=== PATIENT | female | born 1995 | race Caucasian/White ===

== ENCOUNTER 2018-04-05 06:43 | Emergency (ER) | payer OTHER, MEDICAID ==
[~2018-04-05] VITALS: Ht 127 cm; Wt 31.8 kg
[~2018-04-05 06:43] MED LIST: CETI10TA18 PO; FURO20TA4 PO; IPRA3AMP31 IH; LACT460C PO; LANS15CA10 PO; LEVE100S PO; LORA0.5T PO; MAGN400O6 PO; SIME125T7 PO
[2018-04-05] MEDS ORDERED: clindamycin 300mg/D5W 50mL 50 ML IV STA (06:59)
[2018-04-05] MEDS ORDERED: levoFLOXACIN-Levaquin 500mg/D5 100 ML IV ONE (07:00)
[2018-04-05] MEDS ORDERED: normal saline 1000ML IV soln IV ONE (07:00)
[2018-04-05] MEDS ORDERED: levetiracetam inj 250 MG in normal saline 100ml IV soln 97.5 ML IV STA ×2 (07:01→09:39)
[2018-04-05] MEDS ORDERED: LORazepam 2 mg/ml vial ONE (07:54)
[2018-04-05 08:12] LABS: BASOPHILS % (AUTO) 0.1 % (0-1); EOSINOPHILS % (AUTO) 0.1 % (0-6); HEMATOCRIT 37.2 % (35.0-45.0); LYMPHOCYTES # (AUTO) 0.6 X10'3 (1.1-4.8); LYMPHOCYTES % (AUTO) 5.6 % (21-51); MEAN CORPUSCULAR HEMOGLOBIN 31.1 PG (27.0-31.0); MEAN CORPUSCULAR HGB CONC 32.3 % (33.0-36.5); MEAN CORPUSCULAR VOLUME 96.4 FL (78-98); MEAN PLATELET VOLUME 8.8 FL (7.4-10.4); MONOCYTES # (AUTO) 0.8 X10'3 (0-0.9); MONOCYTES % (AUTO) 7.1 % (2-12); NEUTROPHILS # (AUTO) 9.3 X10'3 (1.8-7.7); NEUTROPHILS % (AUTO) 87.1 % (42-75); PLATELET COUNT 233 X10'3 (140-440); RED BLOOD COUNT 3.86 X10'6 (4.20-5.60); RED CELL DISTRIBUTION WIDTH 12.9 % (11.5-14.5); WHITE BLOOD COUNT 10.6 X10'3 (4.5-11.0)
[2018-04-05 08:16] LABS: ABG BASE EXCESS 11.1 mmol/L (-2.0-3.0); ABG HCO3 46.3 mmol/L (22.0-26.0); ABG PCO2 (T) > 150.0 mmHg (32.0-45.0); ABG PH (T) 7.103 (7.350-7.450); ABG PO2 (T) 119.7 mmHg (83-108); FCOHb 0.4 % (0.5-1.5); FMetHb 0.3 % (0.3-1.12); FO2Hb 97.3 % (94-100); MINUTE VOLUME 4 L/min; RESPIRATORY RATE 18 b/min; RESPIRATORY RATE (OBSERVED) 27 b/min; TIDAL VOLUME 146 mL; TOTAL HEMOGLOBIN 13.2 G/dl (12.0-16.0)
[2018-04-05 08:26] LABS: ALANINE AMINOTRANSFERASE 32 U/L (12-78); ALBUMIN 2.7 G/DL (3.4-5.0); ALBUMIN/GLOBULIN RATIO 0.8 (1.1-1.5); ALKALINE PHOSPHATASE 84 IU/L (46-116); ANION GAP -2 (8-16); ASPARTATE AMINO TRANSFERASE 18 U/L (10-37); BILIRUBIN,TOTAL 0.1 MG/DL (0.1-1.0); BLOOD UREA NITROGEN 4 MG/DL (7-18); BUN/CREATININE RATIO 12.1 (6.6-38.0); CALCIUM 7.6 MG/DL (8.5-10.1); CHLORIDE 98 MMOL/L (99-107); CREATININE 0.33 MG/DL (0.40-0.90); GLUCOSE 158 MG/DL (70-104); MAGNESIUM 1.8 MG/DL (1.5-2.4); POTASSIUM 4.7 MMOL/L (3.5-5.1); SODIUM 136 MMOL/L (135-145); TOTAL PROTEIN 6.3 G/DL (6.4-8.2); eGFR > 90 ML/MIN
[2018-04-05 08:29] LABS: INR 1.1 INR; PARTIAL THROMBOPLASTIN TIME 31 SECONDS (22-32); PROTHROMBIN TIME 10.7 SECONDS (9.0-12.0)
[2018-04-05 08:54] LABS: URINE HCG NEGATIVE (NEG)
[2018-04-05 08:57] LABS: CLARITY,URINE CLOUDY (Clear); COLOR,URINE YELLOW (Yellow); GLUCOSE, URINE NEGATIVE (Neg); KETONES,URINE NEGATIVE (Neg); LEUKOCYTE ESTERASE ,URINE NEGATIVE (Neg); NITRITES, URINE NEGATIVE (Neg); OCCULT BLOOD,URINE MODERATE (Neg); PROTEIN,URINE 30 mg/dl (Neg); UA COLLECTION TYPE STRAIGHT CATH; UROBILINOGEN,URINE 0.2 E.U/dL (0.2-1.0)
[2018-04-05] MEDS ORDERED: LORazepam 2 mg/ml vial IV ONE ×2 (09:00→11:25)
[2018-04-05 09:02] LABS: MUCUS STRANDS MODERATE /LPF (Neg); SQUAMOUS EPITHELIAL CELL,UR MODERATE /LPF (FEW); TRANSITIONAL EPI CELLS,URINE MODERATE /HPF
[2018-04-05 09:03] LABS: BACTERIA,URINE 2+ /HPF (Neg)
[2018-04-05 09:04] LABS: HYALINE CASTS 0-3 /LPF (NEGATIVE); RBC,URINE 50-100 /HPF (0-2); WBC,URINE 0-4 /HPF (0-4)
[2018-04-05] MEDS ORDERED: cannabis GT (09:04)
[2018-04-05] MEDS ORDERED: LORA0.5T GT (09:04)
[2018-04-05 09:21] LABS: ABG HCO3 47.7 mmol/L (22.0-26.0); ABG PCO2 (T) 145.7 mmHg (32.0-45.0); ABG PH (T) 7.133 (7.350-7.450); ABG PO2 (T) 123.7 mmHg (83-108); FCOHb 0.4 % (0.5-1.5); FMetHb 0.3 % (0.3-1.12); FO2Hb 97.3 % (94-100); MINUTE VOLUME 12 L/min; RESPIRATORY RATE 20 b/min; RESPIRATORY RATE (OBSERVED) 20 b/min; TIDAL VOLUME 20 mL
[2018-04-05 09:32] LABS: D-DIMER 0.53 MG/L FEU (0-0.50)
[2018-04-05] MEDS ORDERED: propofol 10mg/ml 20ml vial IV ONE (09:45)
[2018-04-05] MEDS ORDERED: sevoflurane 250ml liquid IH ONE (09:45)
[2018-04-05] MEDS ORDERED: midazolam 2 mg/2 ml injection ONE (09:56)
[2018-04-05] MEDS ORDERED: rocuronium 10mg/ml inj IV ONE (09:59)
[2018-04-05] MEDS ORDERED: sodium chloride 0.45% 1,000 ML IV ONE (11:00)
[2018-04-05] MEDS ORDERED: VECuronium br 10mg inj. IV ONE ×2 (11:23→11:25)
[2018-04-05 12:08] VITALS: BP 146/89
== END 2018-04-05 12:10 | disposition short-term general hospital (02) ==
LOC: ER 06:43
DX: J18.9 Pneumonia, unspecified organism (principal); J96.90 Respiratory failure, unspecified, unspecified whether with hypoxia or hypercapnia; G93.49 Other encephalopathy; G83.89 Other specified paralytic syndromes; J45.909 Unspecified asthma, uncomplicated; Q04.3 Other reduction deformities of brain; G82.50 Quadriplegia, unspecified; G40.909 Epilepsy, unspecified, not intractable, without status epilepticus; Z88.1 Allergy status to other antibiotic agents; Z91.040 Latex allergy status; Z99.81 Dependence on supplemental oxygen; Z79.899 Other long term (current) drug therapy; Z98.890 Other specified postprocedural states
CPT/HCPCS: 31500; 36415; 36600; 71045; 80053; 81001; 81025; 82803; 83605; 83735; 83880; 84145; 85018; 85025; 85379; 85610; 85730; 87040; 87077; 87186; 93005; 94660; 94760; 96365; 96368; 96375; 96376; 99291; 99292; J1953; J1956; J2060; J2250; J2704; 94002; 96366; B4088; J3490; J7030; X5958

== ENCOUNTER 2018-08-28 08:52 | Inpatient (IN) | payer OTHER, MEDICAID ==
[~2018-08-28] VITALS: Ht 106.7 cm; Wt 40.0 kg
[~2018-08-28 08:52] MED LIST changes: -CETI10TA18 PO; +CLONIDINE HCL 0.2 MG PO; -FURO20TA4 PO; -LACT460C PO; -LANS15CA10 PO; +LORA0.5T GT; +cannabis GT
[2018-08-28] MEDS ORDERED: normal saline 1000ml 1,000 ML IV ONE (09:28)
[2018-08-28] MEDS ORDERED: albuterol 2.5 MG/3 ML nebule NEB ONE (09:30)
[2018-08-28] MEDS ORDERED: levetiracetam 100mg/ml oral solution 5ml UD cup PO ONE (09:36)
[2018-08-28 11:18] LABS: BASOPHILS % (AUTO) 0.2 % (0-1); EOSINOPHILS % (AUTO) 0.2 % (0-6); HEMATOCRIT 43.2 % (35.0-45.0); HEMOGLOBIN 13.8 g/dl (12.0-16.0); LYMPHOCYTES # (AUTO) 0.6 X10'3 (1.1-4.8); LYMPHOCYTES % (AUTO) 3.2 % (21-51); MEAN CORPUSCULAR HEMOGLOBIN 28.7 PG (27.0-31.0); MEAN CORPUSCULAR HGB CONC 31.9 g/dL (33.0-36.5); MEAN CORPUSCULAR VOLUME 89.9 FL (78-98); MEAN PLATELET VOLUME 9.3 FL (7.4-10.4); MONOCYTES # (AUTO) 1.5 X10'3 (0-0.9); MONOCYTES % (AUTO) 8.4 % (2-12); PLATELET COUNT 327 X10'3 (140-440); RED CELL DISTRIBUTION WIDTH 13.9 % (11.5-14.5); WHITE BLOOD COUNT 18.2 X10'3 (4.5-11.0)
[2018-08-28 11:24] LABS: PARTIAL THROMBOPLASTIN TIME 27 SECONDS (22-32); PROTHROMBIN TIME 10.6 SECONDS (9.0-12.0)
[2018-08-28 11:37] LABS: ALANINE AMINOTRANSFERASE 29 U/L (12-78); ALBUMIN 3.5 G/DL (3.4-5.0); ALBUMIN/GLOBULIN RATIO 0.8 (1.1-1.5); ALKALINE PHOSPHATASE 102 IU/L (46-116); ANION GAP 8 (8-16); ASPARTATE AMINO TRANSFERASE 24 U/L (10-37); BILIRUBIN,TOTAL 0.2 MG/DL (0.1-1.0); BLOOD UREA NITROGEN 12 MG/DL (7-18); BUN/CREATININE RATIO 24.5 (6.6-38.0); CALCIUM 9.8 MG/DL (8.5-10.1); CHLORIDE 101 MMOL/L (99-107); CREATININE 0.49 MG/DL (0.40-0.90); GLUCOSE 91 MG/DL (70-104); MAGNESIUM 2.4 MG/DL (1.5-2.4); POTASSIUM 4.3 MMOL/L (3.5-5.1); SODIUM 145 MMOL/L (135-145); TOTAL CARBON DIOXIDE 36.1 MMOL/L (24-32); TOTAL PROTEIN 7.7 G/DL (6.4-8.2); eGFR > 90 ML/MIN
[2018-08-28 11:54] LABS: PLATELET ESTIMATE NORMAL; TOTAL CELLS COUNTED 100; TOXIC VACUOLATION FEW
[2018-08-28] MEDS ORDERED: normal saline 1000ML IV soln IVB ONE (12:05)
[2018-08-28 12:24] LABS: CLARITY,URINE CLEAR (Clear); COLOR,URINE YELLOW (Yellow); GLUCOSE, URINE NEGATIVE (Neg); KETONES,URINE NEGATIVE (Neg); LEUKOCYTE ESTERASE ,URINE NEGATIVE (Neg); NITRITES, URINE NEGATIVE (Neg); OCCULT BLOOD,URINE TRACE-INTACT (Neg); PROTEIN,URINE 100 mg/dl (Neg); UROBILINOGEN,URINE 0.2 E.U/dL (0.2-1.0)
[2018-08-28 12:29] LABS: UA COLLECTION TYPE STRAIGHT CATH
--- NOTE | 2018-08-28 12:29 | NUR ---
Dr. Deleon from [facility] called and update on patient's condition was given per fathers request. Dr. Deleon states that if the family is requesting for the patient to be transfered he will accept the admission. He is concered that she maybe coming down with a respiratory viral illness due to the patients mother having a URI.
[2018-08-28 12:31] LABS: BACTERIA,URINE FEW /HPF (Neg); MUCUS STRANDS MANY /LPF (Neg); RBC,URINE 0-2 /HPF (0-2); SQUAMOUS EPITHELIAL CELL,UR FEW /LPF (FEW); WBC,URINE 0-4 /HPF (0-4)
--- NOTE | 2018-08-28 12:32 | NUR ---
Dr. Deleon phone number is [phone]
--- NOTE | 2018-08-28 12:52 | NUR ---
Dr. Joel Calvo doing tele neuro consult.
[2018-08-28] MEDS ORDERED: ondansetron/PF 4mg/2ml inj IV PRN (13:50)
[2018-08-28] MEDS ORDERED: levoFLOXACIN 500mg tablet PEG ONE (13:50)
--- NOTE | 2018-08-28 14:41 | NUR ---
RN not available to take report at this time, will call down to ER to get report.
--- NOTE | 2018-08-28 15:30 | NUR ---
Patient arrived to PCU room 3014A via gurney, accompanied by staff and family. Pt transferred to bed, in no acute distress. Vital signs stable: T:98.2, HR:66, RR: 19, BP 111/87. Will continue to monitor
[2018-08-28] MEDS: normal saline 1000ml 1,000 ML IV SCH ×2 (16:04→18:03)
--- NOTE | 2018-08-28 16:28 | NUR ---
Sent group hospitalist page for new patient. PAGER ID: [phone] MESSAGE: Sharon [phone]. RE: Brian [facility] 3014A. Med rec reported and reviewed. Family at bedside, and would like to address PEG tube feeds. Thank you
[2018-08-28 18:00] VITALS: BP 135/69
--- NOTE | 2018-08-28 18:49 | NUR ---
Patient in room PCU 3014. I have received report from Sharon MARIN and had the opportunity to ask questions and assume patient care.
[2018-08-28] MEDS ORDERED: albuterol 2.5 MG/3 ML nebule NEB PRN (19:10)
--- NOTE | 2018-08-28 19:15 | NUR ---
Call placed to Dr Pollard for order for Nebulizer treatments for patient and verified that he was aware that the pt's father had her medications from home and was giving them to her (prior to shift change he stated they were her 1700 meds). He stated he was aware and that he told her father he could give them so he did not have to wait for pharmacy and medication reconciliation to be completed. Father worried pt would go into seizures, pain, and distress. Nurse also let him know he medications were ready for verifying in [facility]. Nurse paged RT for treatment due to pt was wheezing and using accessory muscles when breathing. Nurse went back into room and found the patient's father using their home nebulizer machine and giving her the Albuterol tx he had with them. Informed patients father that pharmacy had all her meds and had verified them. The pt's O2 sats remained >95% on 3 litters O2 and Nebulizer tx was effective. Nurse informed father that from then on we would only use medications distributed by the hospital. He stated understanding and agreed.
[2018-08-28] MEDS ORDERED: LORazepam 0.5 MG tablet PO PRN (19:45)
[2018-08-28] MEDS ORDERED: ipratropium/albuterol 3ml nebule IH PRN (19:45)
[2018-08-28] MEDS ORDERED: cloNIDine 0.1 mg tablet PO SCH (20:00)
[2018-08-28] MEDS ORDERED: levetiracetam 100mg/ml oral solution 5ml UD cup PO SCH ×2 (20:00)
--- NOTE | 2018-08-28 20:45 | NUR ---
The patients father stated he had decided that he would take his daughter home. He stated he felt she was better and stable and just needed antibiotics. He stated he had discussed this with the MD earlier in the ER and the Dr at that time told him it was up to him to decide what he felt she needed. (the family cares for her 28/12 and has since she was born. They are very educated and dedicated to giving her the best of care) He asked if nurse would call MD and see if he would give an RX for ABT for home because he was wanting to leave regardless. Nurse called Dr Pollard and he gave a TOV to have father sign out AMA and another TOV for Levaquin 500 mg tabs for G Tube x 7 days to be called or faxed to pharmacy of their choice. Nurse faxed RX to [facility] in [place]. Had pt's father sign the AMA papers, gave a copy of fax to the father. Nurse discontinued IV pt tolerated well. Tele removed. Pt was continuing on her home O2 sat, heart monitor for leaving. She had remained stable, with no s/s of distress. staff assisted father, patient, and his other daughter to private vehicle and they left without incident.
[2018-08-28] MEDS ORDERED: LORazepam 0.5 MG tablet PO SCH (21:00)
== END 2018-08-28 21:55 | disposition left against medical advice (07) | DRG 177 ==
LOC: ER 08:52 → ED HOLD 13:46 → PCU 3S 15:23
PROVIDERS: ADMIT Hospitalist; ATTEND Hospitalist
DX: J69.0 Pneumonitis due to inhalation of food and vomit (principal); J96.20 Acute and chronic respiratory failure, unspecified whether with hypoxia or hypercapnia; D72.825 Bandemia; G40.901 Epilepsy, unspecified, not intractable, with status epilepticus; G80.8 Other cerebral palsy; Z53.21 Procedure and treatment not carried out due to patient leaving prior to being seen by health care provider; J45.909 Unspecified asthma, uncomplicated; Z88.8 Allergy status to other drugs, medicaments and biological substances; Z88.1 Allergy status to other antibiotic agents; Z91.040 Latex allergy status
CPT/HCPCS: 36415; 71045; 80053; 81001; 83605; 83735; 85025; 85610; 85730; 87040; 93005; 94640; 94760; 96360; 99291; G0378; J7030

== ENCOUNTER 2018-09-03 12:16 | Emergency (ER) | payer OTHER, MEDICAID ==
[~2018-09-03] VITALS: Ht 142.2 cm; Wt 40.0 kg
[~2018-09-03 12:16] MED LIST changes: +0.9 % SODIUM CHLORIDE 10 ML VIAL ONE; -MAGN400O6 PO; -SIME125T7 PO; +etomidate 2mg/ml inj. ONE; +rocuronium 10mg/ml inj IV ONE
[2018-09-03] MEDS ORDERED: succinylcholine 20mg/ml inj IV ONE ×2 (12:18→12:40)
--- NOTE | 2018-09-03 12:25 | NUR ---
20 of etomidate @ 1231 50 of succ @ 1231 10 of rocuronium @ 1230 7.0 et tube used 121 99% 15L 23 RR 126/77 Large amount of mucus suctioned from OP before intubation Intubated @ 1233 20 @ teeth and color change.
[2018-09-03] MEDS ORDERED: normal saline 1000ML IV soln IVB ONE (12:35)
[2018-09-03] MEDS ORDERED: normal saline 1000ml 1,000 ML IV ONE (12:35)
[2018-09-03] MEDS ORDERED: etomidate 2mg/ml inj. IV ONE (12:40)
[2018-09-03] MEDS ORDERED: propofol 1000mg/100ml bottle 100 ML IV PRN (13:12)
[2018-09-03 14:35] LABS: ABG HCO3 42.8 mmol/L (22.0-26.0); ABG OXYGEN SATURATION 98.9 % (95-98); ABG PCO2 (T) 79.1 mmHg (32.0-45.0); ABG PH (T) 7.351 (7.350-7.450); ABG PO2 (T) 162.8 mmHg (83-108); FCOHb 0.3 % (0.5-1.5); FMetHb 0.3 % (0.3-1.12); FO2Hb 98.3 % (94-100); PEEP 5 cm H2O; RESPIRATORY RATE 18 b/min; RESPIRATORY RATE (OBSERVED) 18 b/min; TOTAL HEMOGLOBIN 11.9 G/dl (12.0-16.0)
[2018-09-03 14:38] LABS: BASOPHILS % (AUTO) 0.3 % (0-1); EOSINOPHILS % (AUTO) 0.2 % (0-6); HEMATOCRIT 33.9 % (35.0-45.0); HEMOGLOBIN 11.3 g/dl (12.0-16.0); LYMPHOCYTES # (AUTO) 1.1 X10'3 (1.1-4.8); LYMPHOCYTES % (AUTO) 10.4 % (21-51); MEAN CORPUSCULAR HEMOGLOBIN 29.9 PG (27.0-31.0); MEAN CORPUSCULAR HGB CONC 33.3 g/dL (33.0-36.5); MEAN CORPUSCULAR VOLUME 89.9 FL (78-98); MEAN PLATELET VOLUME 8.3 FL (7.4-10.4); MONOCYTES # (AUTO) 1.3 X10'3 (0-0.9); MONOCYTES % (AUTO) 12.3 % (2-12); NEUTROPHILS % (AUTO) 76.8 % (42-75); PLATELET COUNT 221 X10'3 (140-440); RED BLOOD COUNT 3.77 X10'6 (4.20-5.60); RED CELL DISTRIBUTION WIDTH 14.3 % (11.5-14.5); WHITE BLOOD COUNT 10.5 X10'3 (4.5-11.0)
[2018-09-03] MEDS ORDERED: CefTRIAXone/D5W-Rocephin 1gm 50 ML IV ONE (14:45)
[2018-09-03 14:53] LABS: ALANINE AMINOTRANSFERASE 26 U/L (12-78); ALBUMIN 2.3 G/DL (3.4-5.0); ALBUMIN/GLOBULIN RATIO 0.6 (1.1-1.5); ALKALINE PHOSPHATASE 62 IU/L (46-116); ANION GAP -5 (8-16); ASPARTATE AMINO TRANSFERASE 35 U/L (10-37); BILIRUBIN,TOTAL 0.6 MG/DL (0.1-1.0); BLOOD UREA NITROGEN 8 MG/DL (7-18); BUN/CREATININE RATIO 27.6 (6.6-38.0); CALCIUM 8.3 MG/DL (8.5-10.1); CHLORIDE 94 MMOL/L (99-107); CREATININE 0.29 MG/DL (0.40-0.90); GLUCOSE 110 MG/DL (70-104); MAGNESIUM 1.7 MG/DL (1.5-2.4); PHOSPHORUS 2.4 MG/DL (2.3-4.5); POTASSIUM 5.3 MMOL/L (3.5-5.1); SODIUM 132 MMOL/L (135-145); TOTAL PROTEIN 5.9 G/DL (6.4-8.2); eGFR > 90 ML/MIN
[2018-09-03 14:56] LABS: TOTAL CARBON DIOXIDE 42.9 MMOL/L (24-32)
[2018-09-03] MEDS ORDERED: vancomycin/NS 1 GM ADD-VANTAGE 250 ML IV ONE (15:30)
[2018-09-03] MEDS ORDERED: VANCOMYCIN IV ONE (15:40)
[2018-09-03] MEDS ORDERED: NORMAL SALINE IV ONE (15:40)
[2018-09-03 16:46] VITALS: BP 123/79
[2018-09-03] MEDS ORDERED: LORazepam 2 mg/ml vial IV ONE ×2 (17:00→17:10)
== END 2018-09-03 17:49 | disposition short-term general hospital (02) ==
LOC: ER 12:17 → CANBEDREQ 15:35 → ER 17:49
DX: J96.91 Respiratory failure, unspecified with hypoxia (principal); J18.9 Pneumonia, unspecified organism; G80.9 Cerebral palsy, unspecified; J45.909 Unspecified asthma, uncomplicated; Z98.890 Other specified postprocedural states; Z88.8 Allergy status to other drugs, medicaments and biological substances; Z88.1 Allergy status to other antibiotic agents; Z91.040 Latex allergy status; Z91.09 Other allergy status, other than to drugs and biological substances; Z79.899 Other long term (current) drug therapy
CPT/HCPCS: 31500; 36415; 36600; 71045; 80053; 82803; 83605; 83735; 84100; 85018; 85025; 87040; 94760; 96365; 96367; 96375; 99291; 99292; J0330; J0696; J2060; J2704; J3370; J7030; 94002; J3490

== ENCOUNTER 2018-10-24 10:24 | Emergency (ER) | payer OTHER, MEDICAID ==
[~2018-10-24] VITALS: Ht 134.6 cm; Wt 31.8 kg
[~2018-10-24 10:24] MED LIST changes: -0.9 % SODIUM CHLORIDE 10 ML VIAL ONE; -etomidate 2mg/ml inj. ONE; -rocuronium 10mg/ml inj IV ONE
[2018-10-24] MEDS ORDERED: aspirin 81mg tab.chew PO ONE (10:45)
[2018-10-24 12:55] LABS: ALANINE AMINOTRANSFERASE 36 U/L (12-78); ALBUMIN 3.4 G/DL (3.4-5.0); ALBUMIN/GLOBULIN RATIO 0.8 (1.1-1.5); ALKALINE PHOSPHATASE 94 IU/L (46-116); ANION GAP 5 (8-16); ASPARTATE AMINO TRANSFERASE 35 U/L (10-37); BILIRUBIN,TOTAL 0.1 MG/DL (0.1-1.0); BLOOD UREA NITROGEN 13 MG/DL (7-18); CALCIUM 9.3 MG/DL (8.5-10.1); CHLORIDE 102 MMOL/L (99-107); CREATININE 0.42 MG/DL (0.40-0.90); GLUCOSE 94 MG/DL (70-104); SODIUM 144 MMOL/L (135-145); TOTAL CARBON DIOXIDE 36.9 MMOL/L (24-32); TOTAL PROTEIN 7.9 G/DL (6.4-8.2); eGFR > 90 ML/MIN
[2018-10-24 13:01] LABS: MAGNESIUM 2.1 MG/DL (1.5-2.4)
[2018-10-24 13:10] LABS: POTASSIUM 4.5 MMOL/L (3.5-5.1)
[2018-10-24 13:15] LABS: URINE AMPHETAMINE SCREEN NEGATIVE (Neg); URINE BARBITUATE SCREEN NEGATIVE (Neg); URINE BENZODIAZEPINES SCREEN NEGATIVE (Neg); URINE CANNABINOID SCREEN POSITIVE (Neg); URINE COCAINE SCREEN NEGATIVE (Neg); URINE METHADONE SCREEN NEGATIVE (Neg); URINE OPIATE SCREEN NEGATIVE (Neg); URINE PHENCYCLIDINE SCREEN NEGATIVE (Neg)
--- NOTE | 2018-10-24 13:30 | NUR ---
4 ATTEMPTS AT IV ACCESS WERE MADE BY DIFFERENT NURSES BEFORE PAGING THE PICC NURSE, EACH TIME FLASH WAS OBTAINED BUT NO DEFINITIVE ACCESS.
--- NOTE | 2018-10-24 13:45 | NUR ---
PICC NURSE AT THE BEDSIDE ATTEMPTING IV ACCESS.
[2018-10-24 14:00] LABS: BASOPHILS % (AUTO) 0.5 % (0-1); EOSINOPHILS # (AUTO) 0.3 X10'3 (0-0.9); EOSINOPHILS % (AUTO) 3.5 % (0-6); HEMATOCRIT 38.9 % (35.0-45.0); LYMPHOCYTES % (AUTO) 22.5 % (21-51); MEAN CORPUSCULAR HEMOGLOBIN 30.7 PG (27.0-31.0); MEAN CORPUSCULAR HGB CONC 33.4 g/dL (33.0-36.5); MEAN CORPUSCULAR VOLUME 92.1 FL (78-98); MEAN PLATELET VOLUME 8.6 FL (7.4-10.4); MONOCYTES # (AUTO) 1.1 X10'3 (0-0.9); MONOCYTES % (AUTO) 12.1 % (2-12); NEUTROPHILS # (AUTO) 5.5 X10'3 (1.8-7.7); NEUTROPHILS % (AUTO) 61.4 % (42-75); PLATELET COUNT 443 X10'3 (140-440); RED BLOOD COUNT 4.23 X10'6 (4.20-5.60); RED CELL DISTRIBUTION WIDTH 13.9 % (11.5-14.5)
[2018-10-24 15:05] LABS: CLARITY,URINE CLOUDY (Clear); COLOR,URINE YELLOW (Yellow); GLUCOSE, URINE NEGATIVE (Neg); KETONES,URINE NEGATIVE (Neg); LEUKOCYTE ESTERASE ,URINE NEGATIVE (Neg); NITRITES, URINE NEGATIVE (Neg); OCCULT BLOOD,URINE NEGATIVE (Neg); PH,URINE 6.5 (4.8-8.0); PROTEIN,URINE 30 mg/dl (Neg); UA COLLECTION TYPE STRAIGHT CATH; UROBILINOGEN,URINE 0.2 E.U/dL (0.2-1.0)
[2018-10-24 15:10] LABS: HYALINE CASTS 0-3 /LPF (NEGATIVE); MUCUS STRANDS MANY /LPF (Neg); SQUAMOUS EPITHELIAL CELL,UR MODERATE /LPF (FEW)
[2018-10-24 15:11] LABS: TRANSITIONAL EPI CELLS,URINE FEW /HPF
[2018-10-24 15:12] LABS: BACTERIA,URINE NONE SEEN /HPF (Neg); RBC,URINE 0-2 /HPF (0-2); WBC,URINE 0-4 /HPF (0-4)
[2018-10-24] MEDS ORDERED: normal saline 1000ML IV soln IVB ONE ×2 (15:35→15:40)
--- NOTE | 2018-10-24 15:40 | NUR ---
PICC NURSE MADE SEVERAL ATTEMPTS AT OBTAINING IV ACCESS WITHOUT SUCCESS.
[2018-10-24] MEDS ORDERED: levetiracetam 100mg/ml oral solution 5ml UD cup NG ONE (16:07)
[2018-10-24] MEDS ORDERED: albuterol 2.5 MG/3 ML nebule NEB ONE (16:20)
[2018-10-24] MEDS ORDERED: acetylcysteine 200 MG/ml 4ml vial PO ONE (16:20)
[2018-10-24 17:03] LABS: PARTIAL THROMBOPLASTIN TIME 22 SECONDS (22-32)
[2018-10-24] MEDS ORDERED: cloNIDine 0.1 mg tablet PO ONE (17:20)
[2018-10-24 17:46] LABS: ABG BASE EXCESS 1.9 mmol/L (-2.0-3.0); ABG HCO3 32.6 mmol/L (22.0-26.0); ABG OXYGEN SATURATION 90.3 % (95-98); ABG PCO2 (T) 87.9 mmHg (32.0-45.0); ABG PH (T) 7.187 (7.350-7.450); ABG PO2 (T) 69.1 mmHg (83-108); ALLEN'S TEST Positive; FCOHb 0.6 % (0.5-1.5); FMetHb 0.2 % (0.3-1.12); FO2Hb 89.6 % (94-100); TOTAL HEMOGLOBIN 12.8 G/dl (12.0-16.0)
--- NOTE | 2018-10-24 17:53 | NUR ---
did not give clonidine. SBP was below 110
--- NOTE | 2018-10-24 17:57 | NUR ---
pt's mother is very upset at this time....while at the bedside helping obtain a blood gas mother said that she noticed the pt now has swelling to the face, i immediately told providers, jerry and vinnie, who gave a verbal order for 12.5 benadryl IV. mother is at the bedside yelling profanities at the staff.
--- NOTE | 2018-10-24 17:57 | NUR ---
PT'S MOM YELLED TO TELL ME THAT SHE HAS BEEN TELLING US THAT HER DAUGHTER NEEDS BENADRYL. AT NO TIME DURING THE DAY HAS SHE TOLD ME THIS. WAS NOT UNTIL AT THIS TIME WHEN SHE STARTED SAYING SHE NEEDS BENADRYL. MOTHER IS PHYSICALLY UPSET AND CONTINUES TO YELL AT ME AND DR. CEDILLO. DAUGHTER IS AT 8L/MIN.
[2018-10-24] MEDS ORDERED: diphenhydrAMINE 50 mg/ml inj IV ONE (18:00)
--- NOTE | 2018-10-24 18:08 | NUR ---
WHEN ATTEMPTED TO GIVE BENADRYL THE PT'S MOTHER ADVISED ME THAT SHE ALREADY GAVE THEIR OWN BENADRYL TO THE PT.
--- NOTE | 2018-10-24 18:30 | NUR ---
Rec'd report from Zane/TANIA Nix. Patient will be transferred to [place] and they called report. Dr. Perez is with the patient and according to the father she is having seizures because she did not get her medication. The MD advised the parent that her Keppra was given, and he will order her PRN Ativan.
[2018-10-24] MEDS ORDERED: LORazepam 2 mg/ml vial IV ONE ×2 (18:35→22:50)
[2018-10-24 19:36] LABS: ABG BASE EXCESS 3.7 mmol/L (-2.0-3.0); ABG HCO3 33.9 mmol/L (22.0-26.0); ABG OXYGEN SATURATION 89.2 % (95-98); ABG PCO2 (T) 85.4 mmHg (32.0-45.0); ABG PH (T) 7.217 (7.350-7.450); ABG PO2 (T) 63.2 mmHg (83-108); FCOHb 0.2 % (0.5-1.5); FMetHb 0.1 % (0.3-1.12); FO2Hb 88.9 % (94-100); MINUTE VOLUME 12 L/min; RESPIRATORY RATE (OBSERVED) 18 b/min; TOTAL HEMOGLOBIN 12.3 G/dl (12.0-16.0)
--- NOTE | 2018-10-24 20:22 | NUR ---
Family at bedside,patient sleeping comfortably with Bipap on. Pending transfer to [facility].
--- NOTE | 2018-10-24 23:34 | NUR ---
Patient still resting comfortably, Ativan given and per family patient seems more comfortable. I will continue to monitor.
--- NOTE | 2018-10-25 00:05 | NUR ---
Transport team is here and patient is ready.
[2018-10-25 00:17] VITALS: BP 103/66
== END 2018-10-25 00:23 | disposition short-term general hospital (02) ==
LOC: ER 10:24
DX: R41.82 Altered mental status, unspecified (principal); Q04.3 Other reduction deformities of brain; J96.20 Acute and chronic respiratory failure, unspecified whether with hypoxia or hypercapnia; J45.909 Unspecified asthma, uncomplicated; Z98.890 Other specified postprocedural states; Z87.01 Personal history of pneumonia (recurrent); Z79.899 Other long term (current) drug therapy; Z91.040 Latex allergy status; Z88.1 Allergy status to other antibiotic agents; Z88.8 Allergy status to other drugs, medicaments and biological substances
CPT/HCPCS: 36415; 36600; 71045; 80053; 80305; 81001; 82803; 82948; 83605; 83735; 83880; 84145; 84484; 85018; 85025; 85610; 85730; 87040; 93005; 94640; 94660; 94760; 96361; 96374; 96376; 99285; J1200; J2060; J7030